=== PATIENT | male | born 1965 | race Caucasian/White ===

== ENCOUNTER 2024-06-14 08:10 | Emergency (ER) | payer OTHER, SELFPAY ==
[2024-06-14 08:24] VITALS: BP 126/87; PULSE 67; RESP 16; TEMP 36.2; O2SAT 99
--- NOTE | 2024-06-14 08:28 | ED.URI ---
HPI - URI/Sore Throat General Chief Complaint: Upper Respiratory Infection Stated Complaint: Upper Respiratory Time Seen by Provider: 06/14/24 08:28 Source: patient Mode of arrival: ambulatory Limitations: no limitations History of Present Illness HPI Narrative: 59-year-old male presents with complaint bilateral eye itching and give we drainage since waking up this morning. Reports left eye symptoms worse with redness. Patient reports postnasal drainage that started 1 hour prior to arrival. Was doing yd work yesterday. No other complaints today. All systems reviewed and negative except as noted above. Related Data Home Medications Medication Instructions Recorded Confirmed calcium carbonate 500 mg-vitamin 1 tablet PO DAILY 11/24/22 06/14/24 D3 5 mcg (200 unit) tablet Allergies Allergy/AdvReac Type Severity Reaction Status Date / Time No Known Allergies Allergy Mild Verified 06/14/24 08:16 Review of Systems Review of Systems: CONSTITUTIONAL: Denies fever, chills, or sweats. EYES: Denies visual changes Reports bilateral eye itching and sticky drainage. Reports left eye redness ENT: Denies rhinorrhea, congestion, sore throat, or otalgia. Report postnasal drainage. CARDIOVASCULAR: Denies chest pain, palpitations, or edema. RESPIRATORY: Denies cough or dyspnea. GASTROINTESTINAL: Denies abdominal pain, nausea, vomiting, or diarrhea. GENITOURINARY: Denies dysuria or hematuria. SKIN: Denies rash or itching. MUSCULOSKELETAL: Denies back pain, joint pain, or myalgia. NEUROLOGIC: Denies headache, numbness, or weakness. PSYCHIATRIC: Denies anxiety or depression. All other systems reviewed are negative, except as documented in HPI. [facility] Past Medical History Medical History Dysphagia, unspecified Essential (primary) hypertension Generalized anxiety disorder Hyperlipidemia, unspecified Hypothyroidism, unspecified Insomnia, unspecified Primary osteoarthritis of left hip Vitamin D deficiency, unspecified Surgical History Surgical History H/O mastoidectomy History of cholesteatoma removed. History of left hip hemiarthroplasty 10/29/2019 History of right hip hemiarthroplasty 10/12/2020 History of tonsillectomy Family History Family History Father Malignant neoplasm of prostate Cerebrovascular accident Hypertension Mother Hypertension Grandparent , age 92 with heart problems Heart disease Grandparent , age 60, stroke Cerebrovascular accident Social History Social History Smoking status: Never smoker Alcohol intake: current Drinks per week: 3 Substance use: never Substance use type: does not use Lack of Transportation: No Lack of Food: Never True Current Housing: I Have Housing Concerned About Future Housing: No Difficulty Paying Gas/Electric Bills: No Difficulty Paying for Meds: No Currently Unemployed: No Education: Bachelor's Degree Difficulty w/ Childcare or Family Care: No Living arrangements: with family Occupation/Education: occupation Gender identity (if verbalized by the patient): Male Sexual Orientation (if Verbalized by the Patient): Straight or Heterosexual Comments At time of signature, agree with nursing past medical, surgical, social and family history. There is no relevant family history pertinent to the presenting complaint. Exam Narrative: GENERAL: This is a well-nourished, well-developed patient, in no apparent distress. HEAD: normocephalic, atraumatic. EYES: PERRL. Right eye Sclera clear/white. Vision is grossly intact. left eye conjunctiva and sclera mild erythema. No drainage bilaterally. EARS: External ears normal, auditory canals clear and without drainage, TMs normal without pe
== END 2024-06-14 08:41 | disposition home or self-care (01) ==
PROVIDERS: Emergency Provider Nurse Practitioner Family; PCP Family Medicine
DX: H10.32 Unspecified acute conjunctivitis, left eye (principal); H10.13 Acute atopic conjunctivitis, bilateral; J30.9 Allergic rhinitis, unspecified; I10 Essential (primary) hypertension; E78.5 Hyperlipidemia, unspecified; E03.9 Hypothyroidism, unspecified; M16.12 Unilateral primary osteoarthritis, left hip; Z96.643 Presence of artificial hip joint, bilateral
CPT/HCPCS: 99213; G0463